=== PATIENT | female | born 1940 | race Caucasian/White ===

== ENCOUNTER 2021-08-03 10:57 | Emergency (ER) | payer MEDICARE ==
[~2021-08-03] VITALS: Ht 154.9 cm; Wt 64.6 kg
[~2021-08-03 10:57] MED LIST: GUAI120L55 PO; NO HOME MEDS
[2021-08-03 11:40] VITALS: BP 138/83
[2021-08-03] MEDS ORDERED: GABA-534 PO (14:09)
[2021-08-03] MEDS ORDERED: gabapentin 400mg capsule PO ONE (14:15)
== END 2021-08-03 16:50 | disposition home or self-care (01) ==
LOC: ER 10:57
DX: G62.9 Polyneuropathy, unspecified (principal); Z90.49 Acquired absence of other specified parts of digestive tract; Z90.710 Acquired absence of both cervix and uterus; Z88.2 Allergy status to sulfonamides; Z88.1 Allergy status to other antibiotic agents; Z88.8 Allergy status to other drugs, medicaments and biological substances; Z79.899 Other long term (current) drug therapy; Z87.19 Personal history of other diseases of the digestive system
CPT/HCPCS: 99283